=== PATIENT | female | born 2000 | race Caucasian/White ===

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

== ENCOUNTER 2018-12-01 12:16 | Emergency (ER) | payer OTHER ==
[2018-12-01] MEDS: ACETAMINOPHEN 500 MG TAB PO (14:06)
[2018-12-01] MEDS: IBUPROFEN 800 MG TAB PO (14:06)
[2018-12-01 14:09] LABS: URINE PH (Dip) POC 8.5 (5.0-8.5)
[2018-12-01 14:09] LABS: URINE BLOOD (Dip) POC Trace-intact (NEGATIVE); URINE GLUCOSE (Dip) POC Negative (NEGATIVE); URINE KETONES (Dip) POC 3+ (NEGATIVE); URINE LEUKOCYTE EST (Dip) POC 2+ (NEGATIVE); URINE NITRITE (Dip) POC Negative (NEGATIVE); URINE TOTAL PROTEIN POC 2+ (NEGATIVE)
== END 2018-12-01 14:42 | disposition home or self-care (01) ==
LOC: FTE 12:16
DX: R10.2 Pelvic and perineal pain (principal)
CPT/HCPCS: 81003; 81025; 87086; 99283